=== PATIENT | female | born 1970 | race African-American/Black ===

== ENCOUNTER 2018-05-01 17:28 | Emergency (ER) | payer SELFPAY ==
[~2018-05-01] VITALS: Ht 172.7 cm; Wt 73.0 kg
[2018-05-01 17:35] VITALS: BP 146/95
== END 2018-05-01 19:10 | disposition left against medical advice (07) ==
LOC: ER 17:28
DX: E11.65 Type 2 diabetes mellitus with hyperglycemia (principal); Z53.21 Procedure and treatment not carried out due to patient leaving prior to being seen by health care provider
CPT/HCPCS: 82962